=== PATIENT | female | born 1975 | race Caucasian/White ===

== ENCOUNTER 2017-06-20 00:22 | Emergency (ER) | payer OTHER ==
[~2017-06-20] VITALS: Ht 167.6 cm; Wt 85.7 kg
[2017-06-20] MEDS ORDERED: VIT D2 (00:58)
[2017-06-20 00:59] LABS: *BILIRUBIN,URIN NEGATIVE (NEGATIVE); *BLOOD, URINE 3+ (NEGATIVE); *CLARITY,URINE SLIGHTLY CLOUDY (CLEAR); *COLOR,URINE YELLOW (YELLOW); *KETONES,URINE NEGATIVE (NEGATIVE); *PROTEIN,URINE TRACE (NEGATIVE); *UROBILINOGEN,URINE 0.2 E.U./dl (NORMAL); LEUKOCYTE ESTERASE ,URINE NEGATIVE (NEGATIVE); NITRITE, URINE NEGATIVE (NEGATIVE); UGLUCOSE NEGATIVE (NEGATIVE)
[2017-06-20 01:06] LABS: *URINE HCG, QUAL NEGATIVE (NEGATIVE)
--- NOTE | 2017-06-20 01:08 | NUR ---
PT AMBULATED TO AND FROM BATHROOM W/ STEADY GAIT. NO DISTRESS NOTED. DENIES DIZZINESS OR SOB.
[2017-06-20 01:09] LABS: BACTERIA,URINE FEW /HPF (NONE SEEN); RBC,URINE 80-100 /HPF (0-3); SQUAMOUS EPITHELIAL CELL,UR FEW /HPF (NONE SEEN)
[2017-06-20 01:10] LABS: CALCIUM OXALATE CRYSTALS,UR FEW /HPF (NONE SEEN)
--- NOTE | 2017-06-20 01:15 | NUR ---
LEVON FAJARDO AT BEDSIDE FOR MSE.
[2017-06-20] MEDS ORDERED: SULFAMETH/TRIMETH 800/160 MG TABLET ONE (01:21)
[2017-06-20] MEDS ORDERED: PHENAZOPYRIDINE HCL 100 MG TABLET ONE (01:21)
--- NOTE | 2017-06-20 01:29 | NUR ---
Patient discharged to home in stable conditon. Written and verbal after care instructions given. Patient verbalizes understanding of instructions. Pt ambulated from ER w/ steady gait. No distress noted. Pt took all personal belongings.
[2017-06-20] MEDS ORDERED: PHENAZOPYRIDINE HCL 100 MG TABLET PO ONE (01:30)
[2017-06-20] MEDS ORDERED: SULFAMETH/TRIMETH 800/160 MG TABLET PO ONE (01:30)
[2017-06-20 01:33] VITALS: BP 134/80
== END 2017-06-20 01:35 | disposition home or self-care (01) ==
LOC: ER 00:24
DX: N39.0 Urinary tract infection, site not specified (principal); Z79.899 Other long term (current) drug therapy
CPT/HCPCS: 81001; 84703; 99284; A4663

== ENCOUNTER 2018-01-21 10:07 | Emergency (ER) | payer OTHER ==
[~2018-01-21] VITALS: Ht 167.6 cm; Wt 81.2 kg
[~2018-01-21 10:07] MED LIST: VIT D2
--- NOTE | 2018-01-21 10:34 | NUR ---
PT WAS EVALUATED BY DR MARTINEZ. PT WAS D/C TO HOME. D/C INSTRUCTIONS GIVEN TO THE PT.
[2018-01-21 10:35] VITALS: BP 136/88
== END 2018-01-21 10:36 | disposition home or self-care (01) ==
LOC: ER 10:07
DX: L02.01 Cutaneous abscess of face (principal)
CPT/HCPCS: A4663

== ENCOUNTER 2018-04-15 12:21 | Emergency (ER) | payer BC, OTHER ==
[~2018-04-15] VITALS: Ht 167.6 cm; Wt 78.9 kg
--- NOTE | 2018-04-15 12:39 | NUR ---
PT IS IN ROOM #1A. DR HA EVALUATED THE PT.
--- NOTE | 2018-04-15 13:26 | NUR ---
PT WAS D/C'd TO HOME. D/C'd INSTRUCTIONS GIVEN TO THE PT.
[2018-04-15 13:27] VITALS: BP 130/68
== END 2018-04-15 13:30 | disposition home or self-care (01) ==
LOC: ER 12:21
DX: L03.211 Cellulitis of face (principal)
CPT/HCPCS: A4663

== ENCOUNTER 2018-05-11 16:25 | Emergency (ER) | payer OTHER ==
[~2018-05-11] VITALS: Ht 167.6 cm; Wt 70.3 kg
[2018-05-11 17:05] LABS: *URINE HCG, QUAL NEGATIVE (NEGATIVE)
[2018-05-11 17:13] LABS: *BILIRUBIN,URIN NEGATIVE (NEGATIVE); *BLOOD, URINE 3+ (NEGATIVE); *CLARITY,URINE CLOUDY (CLEAR); *COLOR,URINE YELLOW (YELLOW); *KETONES,URINE NEGATIVE (NEGATIVE); *UROBILINOGEN,URINE 0.2 E.U./dl (NORMAL); LEUKOCYTE ESTERASE ,URINE NEGATIVE (NEGATIVE); NITRITE, URINE POSITIVE (NEGATIVE); UGLUCOSE NEGATIVE (NEGATIVE)
[2018-05-11 17:17] LABS: BACTERIA,URINE MODERATE /HPF (NONE SEEN); RBC,URINE 20-50 /HPF (0-3); SQUAMOUS EPITHELIAL CELL,UR FEW /HPF (NONE SEEN)
[2018-05-11] MEDS ORDERED: PHENAZOPYRIDINE HCL 100 MG TABLET PO ONE (17:45)
[2018-05-11] MEDS ORDERED: PHENAZOPYRIDINE HCL 100 MG TABLET ONE (17:47)
--- NOTE | 2018-05-11 17:52 | NUR ---
Patient discharged to home in stable conditon. Written and verbal after care instructions given. Patient verbalizes understanding of instructions.
[2018-05-11 17:53] VITALS: BP 143/76
== END 2018-05-11 17:54 | disposition home or self-care (01) ==
LOC: ER 16:25
DX: R31.9 Hematuria, unspecified (principal)
CPT/HCPCS: 84703; 87077; 87086; A4663

== ENCOUNTER 2018-08-10 21:22 | Emergency (ER) | payer OTHER ==
[~2018-08-10] VITALS: Ht 167.6 cm; Wt 78.5 kg
--- NOTE | 2018-08-10 21:48 | NUR ---
Pt. ambulated into ED w/ R side of chin mental aspect pain and wound d/t attempted removal of infected hair follicle, A/Ox4, tom, MCKEON/CP/F/C/N/V/D,
--- NOTE | 2018-08-10 21:50 | NUR ---
Patient discharged to home in stable conditon. Written and verbal after care instructions given. Patient verbalizes understanding of instructions. Pt. d/c w/ prescription per MD order, d/c papers signed, all belongings w/ pt., ID band removed, ambulated off [facility] w/ steady gait, NAD
== END 2018-08-10 21:52 | disposition home or self-care (01) ==
LOC: ER 21:23
DX: L03.211 Cellulitis of face (principal)
CPT/HCPCS: A4663

== ENCOUNTER 2018-11-26 21:50 | Emergency (ER) | payer OTHER ==
[~2018-11-26] VITALS: Ht 167.6 cm; Wt 81.2 kg
--- NOTE | 2018-11-26 22:25 | NUR ---
Patient arrive at the ER with CC on open wound on her right chin area. Patient reported she has been picking on the wound in the past 6 wks. Open wound on right moya reddened in color with minimal bleeding. AAOX4. In no acute distress. No cardiovascular concern. No /GI concern.
--- NOTE | 2018-11-26 22:28 | NUR ---
LEVON Cardona at bedside for MSE.
--- NOTE | 2018-11-26 22:28 | NUR ---
Andi bruno in ED - 11/26/18 at 2334 by TYRON ER SHAHRZAD at [facility] for MSE.
[2018-11-26] MEDS ORDERED: LIDOCAINE HCL 1% 20 ML VIAL TP ONE (22:45)
[2018-11-26] MEDS ORDERED: NEOMY/BACITRA/POLYMYXIN B OINT UD PACKET TP ONE (22:49)
--- NOTE | 2018-11-26 23:33 | NUR ---
Patient discharged to home in stable conditon. Written and verbal after care instructions given. Patient verbalizes understanding of instructions. Patient ambulated out of ER with steady gait. All belongings with patient.
== END 2018-11-26 23:20 | disposition home or self-care (01) ==
LOC: ER 21:51
DX: S01.80XA Unspecified open wound of other part of head, initial encounter (principal); X58.XXXA Exposure to other specified factors, initial encounter; Y93.89 Activity, other specified; Y92.89 Other specified places as the place of occurrence of the external cause; Y99.8 Other external cause status
CPT/HCPCS: 99283; J3490; A4217; A4663

== ENCOUNTER 2018-12-18 01:23 | Emergency (ER) | payer OTHER ==
[~2018-12-18] VITALS: Ht 167.6 cm; Wt 76.7 kg
--- NOTE | 2018-12-18 01:39 | NUR ---
Dr. Frausto at bedside for MSE.
[2018-12-18] MEDS ORDERED: CLINDAMYCIN HCL 150 MG CAPSULE PO ONE (01:45)
[2018-12-18] MEDS ORDERED: CLINDAMYCIN HCL 150 MG CAPSULE ONE (01:48)
--- NOTE | 2018-12-18 01:51 | NUR ---
Patient discharged to home in stable condition. Written and verbal after care instructions given. Patient verbalizes understanding of instructions. Pt ambulated out of ER with steady gait, no acute signs of distress, VSS, all belongings taken.
[2018-12-18 01:52] VITALS: BP 125/78
== END 2018-12-18 01:55 | disposition home or self-care (01) ==
LOC: ER 01:25
DX: L03.211 Cellulitis of face (principal)
CPT/HCPCS: A4663

== ENCOUNTER 2022-04-19 16:19 | Emergency (ER) | payer OTHER ==
[~2022-04-19] VITALS: Ht 167.6 cm; Wt 81.6 kg
[2022-04-19] MEDS ORDERED: KETOROLAC TROMETHAMINE 15 MG INJ IVP ONE (16:45)
[2022-04-19] MEDS ORDERED: KETOROLAC TROMETHAMINE 15 MG INJ ONE (17:02)
[2022-04-19 17:14] LABS: HEMATOCRIT 31.7 % (31.2-41.9); MEAN CORPUSCULAR HEMOGLOBIN 29.5 uug (24.7-32.8); MEAN CORPUSCULAR VOLUME 87.5 fL (75.5-95.3); PLATELET COUNT (AUTO) 224 K/uL (179-408)
--- NOTE | 2022-04-19 17:16 | NUR ---
patient wass seen by . IV placed, meds given as orderd. Xray done
[2022-04-19 17:22] LABS: CARBON DIOXIDE 23 mmol/L (21-32); CHLORIDE 104 mmol/L (98-107); CREATININE 0.6 mg/dL (0.6-1.3); GLUCOSE 93 mg/dL (74-106); POTASSIUM 3.7 mmol/L (3.5-5.1); UREA NITROGEN, BLOOD 8 mg/dL (7-18)
--- NOTE | 2022-04-19 17:29 | NUR ---
Patient states pain has diminshed
--- NOTE | 2022-04-19 18:38 | NUR ---
DC and Follow up instructions given and explained to patient who states she understands all instructions
== END 2022-04-19 18:39 | disposition home or self-care (01) ==
LOC: ER 16:20
DX: R07.89 Other chest pain (principal); J40 Bronchitis, not specified as acute or chronic; F17.200 Nicotine dependence, unspecified, uncomplicated
CPT/HCPCS: 99285; 96374; 71045; 80048; 85025; 85379; 84484; 36415; 93005; J1885; A4663